=== PATIENT | female | born 1965 | race Caucasian/White ===

== ENCOUNTER 2017-05-21 09:41 | Outpatient (CLI) | payer BC | END 2017-05-21 09:42 | disposition home or self-care (01) | LOC: CONVCARE 09:41 | PROVIDERS: ATTEND Orthopaedic Surgery | DX: M25.562 Pain in left knee (principal); S83.512A Sprain of anterior cruciate ligament of left knee, initial encounter; S83.412A Sprain of medial collateral ligament of left knee, initial encounter; S83.242A Other tear of medial meniscus, current injury, left knee, initial encounter; S80.02XA Contusion of left knee, initial encounter; M25.462 Effusion, left knee | CPT/HCPCS: 73721 ==

== ENCOUNTER 2017-05-27 10:21 | Outpatient (CLI) | payer BC | END 2017-05-27 10:22 | disposition home or self-care (01) | LOC: CONVCARE 10:21 | PROVIDERS: ATTEND Orthopaedic Surgery | DX: S83.512A Sprain of anterior cruciate ligament of left knee, initial encounter (principal); S83.412A Sprain of medial collateral ligament of left knee, initial encounter | CPT/HCPCS: 73700 ==

== ENCOUNTER 2017-07-30 08:01 | Outpatient (CLI) | payer BC | END 2017-07-30 08:02 | disposition home or self-care (01) | LOC: CONVCARE 08:01 | PROVIDERS: ATTEND Orthopaedic Surgery | DX: S83.242D Other tear of medial meniscus, current injury, left knee, subsequent encounter (principal) | CPT/HCPCS: 73560 ==